=== PATIENT | female | born 1940 | race Caucasian/White ===

== ENCOUNTER 2017-01-21 05:10 | Day surgery (SDC) | payer MEDICARE, MEDICAID ==
[~2017-01-21 05:10] MED LIST: NAPROSYN500 MG PO; PREDNISONE2.5 MG PO; ROBAXIN500 MG PO; SYNTHROID175 MCG PO; ZOLOFT50 MG PO
[2017-01-21 05:49] LABS: BASOPHILS 0.1 % (0-2); EOSINOPHILS 1.1 % (0-7); HEMATOCRIT 36.4 % (36.0-48.0); HEMOGLOBIN 11.5 g/dL (12-16); IMMATURE GRANULOCYTES 0.4 % (0-5); MCH 28.9 pg (26.0-34.0); MCHC 31.6 g/dL (31.0-37.0); MCV 91.5 fL (80.0-100.0); MEAN PLATELET VOLUME 11.6 fL (7.4-10.4); MONOCYTES 6.1 % (2-11); NEUTROPHILS 74.3 % (40-80); RBC 3.98 10x6/uL (4.00-5.40); RDW 14.6 % (11.5-14.5); WBC 10.5 10x3/uL (4.8-10.8)
[2017-01-21 05:52] LABS: ANION GAP 16.3 mmol/L (8-16); APTT 50.1 SECONDS (22.8-39.4); CALCIUM 8.1 mg/dL (8.5-10.1); CARBON DIOXIDE 19.7 mmol/L (21.0-32.0); CREATININE - SERUM 1.5 mg/dL (0.6-1.3); INR 1.07 (0.85-1.17); PROTIME 13.7 SECONDS (11.6-15.0)
[2017-01-21 05:53] LABS: PLATELET COUNT 205 10x3/uL (130-400)
[2017-01-21] MEDS ORDERED: OMEPRAZOLE20 M1 PO (06:27)
[2017-01-21 06:28] VITALS: BP 128/60; BMI 33.9
[2017-01-21] MEDS ORDERED: HYDROCODONE-APA1 TAB PO (09:33)
--- NOTE | 2017-01-21 11:21 | NUR ---
REED REMOVED INTACT, APPROXIMATLY 60 CC YELLOW URINE OUT.
--- NOTE | 2017-02-04 11:14 | OP ---
PATIENT NAME: SHABANA GUERRA MEDICAL RECORD: [id number] :42 LOCATION:D.OPS ADMISSION DATE: SURGEON: DARINEL SUTTON MD DATE OF OPERATION: 01/21/2017 PREOPERATIVE DIAGNOSES: 1. Ventral incisional hernia. 2. Gastroesophageal reflux disease. 3. Hiatal hernia. 4. Arthritis. 5. History of chronic steroid use. 6. Morbid obesity. 7. History of parotid gland cancer. POSTOPERATIVE DIAGNOSES: 1. Ventral incisional hernia. 2. Gastroesophageal reflux disease. 3. Hiatal hernia. 4. Arthritis. 5. History of chronic steroid use. 6. Morbid obesity. 7. History of parotid gland cancer. PROCEDURE: Ventral hernia repair with 8 x [address] mesh. SURGEON: Darinel Sutton MD REPORT OF PROCEDURE: The patient's abdomen was prepped and draped in sterile fashion. The hernia defect was in the left upper quadrant. A subcostal incision was made overlying the hernia defect. Electrocautery was used to dissect through the subcutaneous tissues and we encountered the hernia sac. The sac was penetrated with electrocautery and we entered the abdominal cavity. There were no adhesions to the hernia sac. We then took down the hernia sac to the fascial edges. The fascial edges were actually very mobile, but they were thin and did not appear to be a very strong. The top and bottom surfaces of the fascia were freed up from any surrounding attachments. The patient had a lot of old mesh present in the upper midline. We measured out the defect, it was about 11 cm in length. It appeared that the defect would close most easily in a longitudinal fashion. The edges were cleared off until we had some good viable fascial tissue present. A 12 x [address] mesh was inserted in an underlay fashion and sutured down to the fascia using interrupted 0 Prolenes times 8. The mesh appeared to rest in good position. We then irrigated out the wound thoroughly with normal saline. The fascia was then closed longitudinally with #1 looped PDS times 2 At this point, we had good fascial closure overlying the mesh. We irrigated out the wound thoroughly with normal saline and assured there was no sign of any bleeding. At this point, the subcutaneous tissues were reapproximated with interrupted 3-0 Vicryl and the skin was closed with running subcutaneous 5-0 Monocryl. The patient had a small indentation in the midline overlying some firm tissue. I figured this was probably going to be a small suture granuloma. A skin incision was made overlying this. The skin incision was actually just to the right of midline in the upper abdomen. As we dissected through, we found there was not a suture granuloma, but there was a balled up piece of corner of a mesh that was present just under the skin. This piece of mesh was transected from surrounding tissue. The subcutaneous tissues were then irrigated out and reapproximated with 3-0 Vicryl and the skin was closed with OPERATIVE REPORT [id number] SHABANA GUERRA running subcutaneous 5-0 Monocryl. The wounds were all dressed appropriately. COMPLICATIONS: None. CONDITION: Stable. ANESTHESIA: General endotracheal. BLOOD LOSS: Minimal. TRANSINT:[id number] Voice Confirmation ID: [id number] DOCUMENT ID: [id number] DARINEL SUTTON MD at 1114 CC: DEJA MARTINEZ MD [id number] DICTATION DATE: 01/21/17939 WAIVER ANALYST: 01/21/17 1024 [facility] 01/21/17 [facility] [address] [place] [address]
== END 2017-01-21 13:10 | disposition home or self-care (01) ==
LOC: D.OPS 05:10 → D.PAN 07:30 → D.OPS 09:45
PROVIDERS: Anesthesiology; Surgery
DX: K43.2 Incisional hernia without obstruction or gangrene (principal); K21.9 Gastro-esophageal reflux disease without esophagitis; K44.9 Diaphragmatic hernia without obstruction or gangrene; M19.90 Unspecified osteoarthritis, unspecified site; Z79.52 Long term (current) use of systemic steroids; E66.01 Morbid (severe) obesity due to excess calories; Z85.89 Personal history of malignant neoplasm of other organs and systems; Z01.812 Encounter for preprocedural laboratory examination; Z68.33 Body mass index [BMI] 33.0-33.9, adult

== ENCOUNTER 2017-04-18 16:11 | Emergency (ER) | payer MEDICARE, MEDICAID ==
[~2017-04-18 16:11] MED LIST changes: +HYDROCODONE-APA1 TAB PO; +OMEPRAZOLE20 M1 PO
[2017-04-18 17:45] LABS: ALBUMIN 2.7 g/dL (3.4-5.0); ANION GAP 20.2 mmol/L (8-16); BILIRUBIN - TOTAL 0.68 mg/dL (0.2-1.3); CARBON DIOXIDE 18.2 mmol/L (21.0-32.0); CREATININE - SERUM 1.5 mg/dL (0.6-1.3); POTASSIUM - SERUM 3.4 mmol/L (3.5-5.1)
[2017-04-18 17:50] LABS: INR 1.29 (0.85-1.17); PROTIME 15.6 SECONDS (11.6-15.0)
[2017-04-18 17:51] LABS: D-DIMER-QUANTITATIVE 0.85 ug/mLFEU (0.20-0.54)
[2017-04-18 17:56] LABS: CALCIUM 6.4 mg/dL (8.5-10.1)
[2017-04-18 19:02] LABS: CKMB 0.5 U/L (0.0-3.6); CREATINE KINASE 115 UL (21-215)
[2017-04-18 19:29] LABS: BASOPHILS 0.1 % (0-2); EOSINOPHILS 0.4 % (0-7); HEMATOCRIT 35.4 % (36.0-48.0); HEMOGLOBIN 11.6 g/dL (12-16); IMMATURE GRANULOCYTES 0.1 % (0-5); LYMPHOCYTES 15.2 % (15-50); MCH 27.8 pg (26.0-34.0); MCHC 32.8 g/dL (31.0-37.0); MCV 84.9 fL (80.0-100.0); MONOCYTES 7.9 % (2-11); NEUTROPHILS 76.3 % (40-80); RBC 4.17 10x6/uL (4.00-5.40); RDW 14.9 % (11.5-14.5); WBC 6.7 10x3/uL (4.8-10.8)
[2017-04-18 19:31] LABS: PLATELET COUNT 103 10x3/uL (130-400)
== END 2017-04-18 19:57 | disposition home or self-care (01) ==
LOC: D.ER 16:11
PROVIDERS: Emergency Medicine; Physician Assistant Medical
DX: I31.3 Pericardial effusion (noninflammatory) (principal); R06.00 Dyspnea, unspecified; I10 Essential (primary) hypertension; M32.9 Systemic lupus erythematosus, unspecified

== ENCOUNTER → 2017-06-03 16:58 | Outpatient (CLI) | payer MEDICARE, MEDICAID ==
[~2017-06-03 16:58] MED LIST changes: +OS-CAL500 MG PO; +PROTONIX40 MG PO; +VITAMIN D31000 UNI2 PO
== END | disposition home or self-care (01) ==
LOC: D.MAMMO 04-02 15:45
DX: Z12.31 Encounter for screening mammogram for malignant neoplasm of breast (principal)

== ENCOUNTER → 2017-06-13 15:15 | Outpatient (CLI) | payer MEDICARE, MEDICAID | END | disposition home or self-care (01) | LOC: D.MRI 06-12 14:00 | DX: M54.2 Cervicalgia (principal) ==

== ENCOUNTER 2017-07-08 12:13 | Inpatient (IN) | payer MEDICARE, MEDICAID ==
[~2017-07-08] VITALS: Ht 160 cm; Wt 68.0 kg
[~2017-07-08 12:13] MED LIST changes: -OS-CAL500 MG PO; -PROTONIX40 MG PO; -VITAMIN D31000 UNI2 PO
[2017-07-08 12:53] LABS: BASOPHILS 0.1 % (0-2); EOSINOPHILS 0.4 % (0-7); HEMATOCRIT 30.5 % (36.0-48.0); HEMOGLOBIN 10.2 g/dL (12-16); IMMATURE GRANULOCYTES 0.4 % (0-5); LYMPHOCYTES 11.5 % (15-50); MCH 28.7 pg (26.0-34.0); MCHC 33.4 g/dL (31.0-37.0); MCV 85.9 fL (80.0-100.0); MEAN PLATELET VOLUME 11.2 fL (7.4-10.4); MONOCYTES 4.2 % (2-11); NEUTROPHILS 83.4 % (40-80); RBC 3.55 10x6/uL (4.00-5.40); RDW 16.8 % (11.5-14.5); WBC 8.3 10x3/uL (4.8-10.8)
[2017-07-08 13:03] LABS: APPEARANCE CLEAR (CLEAR); BILIRUBIN NEGATIVE (NEGATIVE); COLOR YELLOW (YELLOW); GLUCOSE NEGATIVE (NEGATIVE); KETONE NEGATIVE (NEGATIVE); NITRITE NEGATIVE (NEGATIVE); PROTEIN NEGATIVE (NEGATIVE); UROBILINOGEN NORMAL (NORMAL)
[2017-07-08 13:03] LABS: PLATELET COUNT 128 10x3/uL (130-400)
[2017-07-08 13:04] LABS: ALBUMIN 2.3 g/dL (3.4-5.0); ANION GAP 18.5 mmol/L (8-16); BILIRUBIN - TOTAL 0.73 mg/dL (0.2-1.3); CARBON DIOXIDE 16.7 mmol/L (21.0-32.0); CREATININE - SERUM 1.4 mg/dL (0.6-1.3); POTASSIUM - SERUM 3.2 mmol/L (3.5-5.1); PROTEIN - SERUM 6.2 g/dL (6.4-8.2)
[2017-07-08 20:23] VITALS: BP 142/77
[2017-07-08 23:43] VITALS: BP 101/68
[2017-07-09 04:25] VITALS: BP 151/80
[2017-07-09 06:27] VITALS: BP 138/80; BMI 26.6
[2017-07-09 08:39] VITALS: BP 164/87
[2017-07-09 12:45] VITALS: BP 152/88
[2017-07-09 14:14] VITALS: BMI 26.5
[2017-07-09 14:48] LABS: T4 THYROXIN - FREE 1.21 ng/dL (0.76-1.46); THYROID STIMULATING HORMONE 4.15 uIU/mL (0.36-3.74)
[2017-07-09 17:11] VITALS: BP 141/67
[2017-07-09 20:00] VITALS: BP 131/98
[2017-07-09 21:36] VITALS: Ht 160 cm; Wt 68.0 kg
[2017-07-10] VITALS: BP 142/76
[2017-07-10 04:00] VITALS: BP 130/75
[2017-07-10 05:16] LABS: BASOPHILS 0.1 % (0-2); EOSINOPHILS 0.6 % (0-7); HEMATOCRIT 27.8 % (36.0-48.0); HEMOGLOBIN 9.3 g/dL (12-16); IMMATURE GRANULOCYTES 0.3 % (0-5); LYMPHOCYTES 13.2 % (15-50); MCH 28.7 pg (26.0-34.0); MCHC 33.5 g/dL (31.0-37.0); MCV 85.8 fL (80.0-100.0); MONOCYTES 4.3 % (2-11); NEUTROPHILS 81.5 % (40-80); PLATELET COUNT 106 10x3/uL (130-400); RBC 3.24 10x6/uL (4.00-5.40); RDW 17.2 % (11.5-14.5); WBC 7.1 10x3/uL (4.8-10.8)
[2017-07-10 05:36] LABS: ANION GAP 20.4 mmol/L (8-16); BILIRUBIN - TOTAL 0.65 mg/dL (0.2-1.3); CARBON DIOXIDE 15.2 mmol/L (21.0-32.0); CREATININE - SERUM 1.2 mg/dL (0.6-1.3); PHOSPHOROUS 2.9 mg/dL (2.5-4.9); POTASSIUM - SERUM 3.6 mmol/L (3.5-5.1); PROTEIN - SERUM 5.4 g/dL (6.4-8.2)
[2017-07-10 05:50] LABS: CALCIUM 4.9 mg/dL (8.5-10.1); MAGNESIUM - SERUM 1.6 mg/dL (1.8-2.4)
[2017-07-10 09:11] VITALS: BP 161/77
[2017-07-10 13:21] VITALS: BP 151/85
[2017-07-10 20:00] VITALS: BP 136/57
[2017-07-11 00:49] VITALS: BP 119/71
[2017-07-11 04:49] VITALS: BP 161/73
[2017-07-11 06:43] LABS: ANION GAP 14.8 mmol/L (8-16); CARBON DIOXIDE 14.8 mmol/L (21.0-32.0); CREATININE - SERUM 1.2 mg/dL (0.6-1.3); MAGNESIUM - SERUM 1.9 mg/dL (1.8-2.4); PHOSPHOROUS 2.8 mg/dL (2.5-4.9); POTASSIUM - SERUM 3.6 mmol/L (3.5-5.1); PRE-ALBUMIN 16.3 mg/dL (18.0-35.7)
[2017-07-11 06:50] LABS: BASOPHILS 0.2 % (0-2); EOSINOPHILS 0.7 % (0-7); HEMOGLOBIN 9.2 g/dL (12-16); IMMATURE GRANULOCYTES 0.1 % (0-5); MCHC 31.7 g/dL (31.0-37.0); MCV 91.5 fL (80.0-100.0); PLATELET COUNT 99 10x3/uL (130-400); RBC 3.17 10x6/uL (4.00-5.40); WBC 9.1 10x3/uL (4.8-10.8)
[2017-07-11 07:24] LABS: CALCIUM 5.1 mg/dL (8.5-10.1)
[2017-07-11 07:57] LABS: PLATELET ESTIMATE DECREASED
[2017-07-11 10:22] LABS: VITAMIN D 25 HYDROXY 22.8 ng/mL (30.0-100.0)
[2017-07-11 12:10] VITALS: BP 144/59
[2017-07-11 15:54] VITALS: BP 144/75
[2017-07-11 20:00] VITALS: BP 121/64
[2017-07-12] VITALS: BP 140/65
[2017-07-12 04:00] VITALS: BP 152/83
[2017-07-12 06:20] LABS: BASOPHILS 0.1 % (0-2); EOSINOPHILS 0.7 % (0-7); HEMATOCRIT 32.1 % (36.0-48.0); HEMOGLOBIN 10.7 g/dL (12-16); IMMATURE GRANULOCYTES 0.3 % (0-5); LYMPHOCYTES 10.2 % (15-50); MCH 29.2 pg (26.0-34.0); MCHC 33.3 g/dL (31.0-37.0); MEAN PLATELET VOLUME 11.7 fL (7.4-10.4); MONOCYTES 3.2 % (2-11); NEUTROPHILS 85.5 % (40-80); PLATELET COUNT 111 10x3/uL (130-400); RBC 3.67 10x6/uL (4.00-5.40); RDW 17.5 % (11.5-14.5); WBC 9.1 10x3/uL (4.8-10.8)
[2017-07-12 06:21] LABS: MCV 87.5 fL (80.0-100.0)
[2017-07-12 06:34] LABS: ANION GAP 19.1 mmol/L (8-16); CARBON DIOXIDE 16.4 mmol/L (21.0-32.0); CREATININE - SERUM 1.1 mg/dL (0.6-1.3); MAGNESIUM - SERUM 2.1 mg/dL (1.8-2.4); PHOSPHOROUS 2.1 mg/dL (2.5-4.9); POTASSIUM - SERUM 3.5 mmol/L (3.5-5.1)
[2017-07-12 06:56] LABS: CALCIUM 5.3 mg/dL (8.5-10.1)
[2017-07-12 07:18] LABS: ALBUMIN 2.5 g/dL (3.4-5.0)
[2017-07-12 07:44] VITALS: BP 136/76
[2017-07-12 11:34] VITALS: BP 141/73
[2017-07-12 16:20] VITALS: BP 134/68
[2017-07-12 21:53] VITALS: BP 91/56
[2017-07-13 02:51] VITALS: BP 142/74
[2017-07-13 06:56] LABS: BASOPHILS 0.2 % (0-2); EOSINOPHILS 1.2 % (0-7); HEMATOCRIT 28.8 % (36.0-48.0); HEMOGLOBIN 9.4 g/dL (12-16); IMMATURE GRANULOCYTES 0.2 % (0-5); LYMPHOCYTES 9.6 % (15-50); MCH 28.6 pg (26.0-34.0); MCHC 32.6 g/dL (31.0-37.0); MCV 87.5 fL (80.0-100.0); MEAN PLATELET VOLUME 12.2 fL (7.4-10.4); MONOCYTES 5.5 % (2-11); NEUTROPHILS 83.3 % (40-80); PLATELET COUNT 102 10x3/uL (130-400); RBC 3.29 10x6/uL (4.00-5.40); RDW 17.6 % (11.5-14.5)
[2017-07-13 07:02] LABS: WBC 5.9 10x3/uL (4.8-10.8)
[2017-07-13 07:28] LABS: CARBON DIOXIDE 18.4 mmol/L (21.0-32.0); CREATININE - SERUM 1.1 mg/dL (0.6-1.3); MAGNESIUM - SERUM 2.1 mg/dL (1.8-2.4); PHOSPHOROUS 2.6 mg/dL (2.5-4.9)
[2017-07-13 07:39] LABS: ANION GAP 18.7 mmol/L (8-16); POTASSIUM - SERUM 4.1 mmol/L (3.5-5.1)
[2017-07-13 07:40] LABS: CALCIUM 5.1 mg/dL (8.5-10.1)
[2017-07-13 08:37] VITALS: BP 131/63
[2017-07-13 12:00] VITALS: BP 138/71
[2017-07-13 15:37] VITALS: BP 152/76
[2017-07-13 21:02] VITALS: BP 153/84
[2017-07-14 01:39] VITALS: BP 114/39
[2017-07-14 07:03] LABS: BASOPHILS 0.2 % (0-2); EOSINOPHILS 0.8 % (0-7); HEMATOCRIT 29.1 % (36.0-48.0); HEMOGLOBIN 9.5 g/dL (12-16); IMMATURE GRANULOCYTES 0.2 % (0-5); LYMPHOCYTES 11.5 % (15-50); MCH 28.9 pg (26.0-34.0); MCHC 32.6 g/dL (31.0-37.0); MCV 88.4 fL (80.0-100.0); MEAN PLATELET VOLUME 11.7 fL (7.4-10.4); MONOCYTES 6.4 % (2-11); NEUTROPHILS 80.9 % (40-80); PLATELET COUNT 101 10x3/uL (130-400); RBC 3.29 10x6/uL (4.00-5.40); WBC 5.9 10x3/uL (4.8-10.8)
[2017-07-14 07:34] LABS: ANION GAP 18.5 mmol/L (8-16); CARBON DIOXIDE 17.3 mmol/L (21.0-32.0); CREATININE - SERUM 1.2 mg/dL (0.6-1.3); MAGNESIUM - SERUM 2.1 mg/dL (1.8-2.4); PHOSPHOROUS 2.1 mg/dL (2.5-4.9); POTASSIUM - SERUM 3.8 mmol/L (3.5-5.1)
[2017-07-14 07:52] LABS: CALCIUM 5.2 mg/dL (8.5-10.1)
[2017-07-14 16:05] VITALS: BP 136/88
[2017-07-14 20:00] VITALS: BP 137/75
[2017-07-15] VITALS: BP 127/63
[2017-07-15 04:00] VITALS: BP 121/70
[2017-07-15 05:28] LABS: BASOPHILS 0.2 % (0-2); EOSINOPHILS 0.9 % (0-7); HEMATOCRIT 25.2 % (36.0-48.0); HEMOGLOBIN 8.3 g/dL (12-16); IMMATURE GRANULOCYTES 0.2 % (0-5); MCH 29.2 pg (26.0-34.0); MCHC 32.9 g/dL (31.0-37.0); MCV 88.7 fL (80.0-100.0); NEUTROPHILS 82.7 % (40-80); PLATELET COUNT 91 10x3/uL (130-400); RBC 2.84 10x6/uL (4.00-5.40); RDW 17.9 % (11.5-14.5); WBC 5.8 10x3/uL (4.8-10.8)
[2017-07-15 05:49] LABS: ANION GAP 15.3 mmol/L (8-16); CARBON DIOXIDE 19.4 mmol/L (21.0-32.0); PHOSPHOROUS 2.1 mg/dL (2.5-4.9); POTASSIUM - SERUM 3.7 mmol/L (3.5-5.1)
[2017-07-15 06:30] LABS: CALCIUM 4.9 mg/dL (8.5-10.1)
[2017-07-15 06:41] LABS: PLATELET ESTIMATE DECREASED
[2017-07-15 10:27] VITALS: BP 137/80
[2017-07-15 18:18] VITALS: BP 149/75
[2017-07-15 20:00] VITALS: BP 130/64
[2017-07-16 04:00] VITALS: BP 138/76
[2017-07-16 06:59] LABS: BASOPHILS 0.2 % (0-2); EOSINOPHILS 0.8 % (0-7); IMMATURE GRANULOCYTES 0.2 % (0-5); LYMPHOCYTES 11.3 % (15-50); MCHC 32.6 g/dL (31.0-37.0); MONOCYTES 8.9 % (2-11); NEUTROPHILS 78.6 % (40-80); RDW 19.3 % (11.5-14.5); WBC 6.1 10x3/uL (4.8-10.8)
[2017-07-16 07:00] LABS: HEMATOCRIT 32.5 % (36.0-48.0); HEMOGLOBIN 10.6 g/dL (12-16); MCV 85.8 fL (80.0-100.0); PLATELET COUNT 57 10x3/uL (130-400); RBC 3.79 10x6/uL (4.00-5.40)
[2017-07-16 07:19] LABS: ALBUMIN 2.1 g/dL (3.4-5.0); ANION GAP 17.4 mmol/L (8-16); BILIRUBIN - TOTAL 0.47 mg/dL (0.2-1.3); CARBON DIOXIDE 17.6 mmol/L (21.0-32.0); PROTEIN - SERUM 5.1 g/dL (6.4-8.2)
[2017-07-16 07:36] LABS: CALCIUM 4.9 mg/dL (8.5-10.1)
[2017-07-16 08:46] VITALS: BP 139/75
[2017-07-16 13:10] VITALS: BP 145/87
[2017-07-16] MEDS ORDERED: VITAMIN D31000 UNI2 PO (13:46)
[2017-07-16] MEDS ORDERED: PROTONIX40 MG PO (13:46)
[2017-07-16] MEDS ORDERED: OS-CAL500 MG PO (13:46)
== END 2017-07-16 15:50 | disposition home or self-care (01) | DRG 391 ==
LOC: D.ER 12:13 → D.MS 15:44 → D.EDHOLD 15:44 → D.MS 16:30
PROVIDERS: Emergency Medicine; Family Medicine; Internal Medicine Gastroenterology; Internal Medicine Nephrology
PROC: 05HC33Z Insertion of Infusion Device into Left Basilic Vein, Percutaneous Approach (ICD-10-PCS; 2017-07-14)
PROC: B54NZZA Ultrasonography of Left Upper Extremity Veins, Guidance (ICD-10-PCS; 2017-07-14)
PROC: 0DBN8ZX Excision of Sigmoid Colon, Via Natural or Artificial Opening Endoscopic, Diagnostic (ICD-10-PCS; principal; 2017-07-14 08:25)
DX: K52.9 Noninfective gastroenteritis and colitis, unspecified (principal); G93.41 Metabolic encephalopathy; E43 Unspecified severe protein-calorie malnutrition; K91.2 Postsurgical malabsorption, not elsewhere classified; E83.42 Hypomagnesemia; E83.51 Hypocalcemia; I95.9 Hypotension, unspecified; E87.6 Hypokalemia; E16.2 Hypoglycemia, unspecified; Z98.84 Bariatric surgery status; F32.9 Major depressive disorder, single episode, unspecified; E03.9 Hypothyroidism, unspecified; I12.9 Hypertensive chronic kidney disease with stage 1 through stage 4 chronic kidney disease, or unspecified chronic kidney disease; N18.3 Chronic kidney disease, stage 3 (moderate); K91.1 Postgastric surgery syndromes; Y83.8 Other surgical procedures as the cause of abnormal reaction of the patient, or of later complication, without mention of misadventure at the time of the procedure; K57.30 Diverticulosis of large intestine without perforation or abscess without bleeding; K64.8 Other hemorrhoids

== ENCOUNTER → 2017-12-18 14:43 | Outpatient (CLI) | payer MEDICARE ==
[2017-07-09 21:36] VITALS: BMI 26.5
[~2017-12-18 14:43] MED LIST changes: +OS-CAL500 MG PO; +PROTONIX40 MG PO; +VITAMIN D31000 UNI2 PO
== END | disposition home or self-care (01) ==
LOC: D.US 14:43
DX: N18.3 Chronic kidney disease, stage 3 (moderate) (principal); R19.7 Diarrhea, unspecified; Z68.28 Body mass index [BMI] 28.0-28.9, adult

== ENCOUNTER 2018-01-13 13:18 | Day surgery (SDC) | payer MEDICARE ==
[~2018-01-13] VITALS: Ht 157.5 cm; Wt 70.9 kg
--- NOTE | ~2018-01-13 | OP ---
PATIENT NAME: SHABANA DESOUZA MEDICAL RECORD: [id number] :42 LOCATION:JACOB ADMISSION DATE: SURGEON: EVA MANTILLA MD DATE OF OPERATION: 01/13/2018 PROCEDURE: Colonoscopy with biopsy, polyp ablation, and polypectomy. REFERRING PHYSICIAN: Gopi Espinoza MD INDICATIONS: Ms. Desouza is a delightful 77-year-old woman with history of arthritis and lupus, who had been admitted to the hospital in June 2017 with symptoms of chronic diarrhea. Flexible sigmoidoscopy biopsies were remarkable for collagenous colitis and she was subsequently treated with a tapering dose of Entocort EC over 2-month period. Her diarrhea has basically cleared and she is using Questran p.r.n. She has a history of colon polyps with her last complete colonoscopy being with Dr. Salinas on 11/05/2007 with findings of 4 tubulovillous adenomas and grade I internal hemorrhoids. She presents for outpatient colonoscopy. PREMEDICATIONS: Total IV anesthesia, propofol 300 mg, ASA 3. INSTRUMENT: Olympus video colonoscope, pediatric. PROCEDURE AND FINDINGS: After receiving informed consent, Ms. Desouza was placed in left lateral decubitus position and sedated as per anesthesia. After achieving an adequate level of sedation, digital rectal exam was performed that showed no external hemorrhoids, fissures, or fistulas. Normal sphincter tone. No palpable rectal masses. The colonoscope was introduced per rectally and advanced with some difficulty to the cecum. She had a large ventral hernia with looping of the colon and scope in the ventral hernia. The cecum, IC valve, and appendiceal orifice were identified. The periappendiceal orifice mucosa had slight spiculated appearance and was biopsied. At the edge of the IC valve and distal cecum, was a 1-cm sessile polyp, removed with hot biopsy forcep technique. Postpolypectomy, there was mild oozing at the postpolypectomy site and a Hemoclip was applied with good hemostasis. In the proximal ascending colon, was a 0.25- to 0.3-cm sessile polyp that was ablated with the hot biopsy forceps. Biopsies were taken from the ascending colon to rule out collagenous colitis. At the hepatic flexure, was a 0.5-cm sessile polyp removed with biopsy forcep technique. In the mid transverse colon, was a 2-cm nonobstructive-like submucosal lesion with appearance of a lipoma, status post biopsy. In the transverse colon; also was a 0.3- to 0.5-cm sessile polyp, removed with biopsy forcep technique. Few diverticula were seen scattered in the sigmoid colon. Retroflexion in the rectum showed no significant internal hemorrhoids. A qioy-sy-losv prep was present. Ms. Desouza tolerated the procedure well. No immediate complications. Withdrawal time was 15 minutes. ASSESSMENT: 1. Abnormal tissue surrounding the appendiceal orifice, status post biopsy. 2. A 1-cm polyp at the edge of the IC valve/cecum, status post polypectomy with Hemoclip application for hemostasis. 3. Proximal ascending colon polyp, status post ablation. 4. Hepatic flexure polyp, status post polypectomy. 5. Transverse colon polyp, status post polypectomy. 6. Transverse colonic lipoma, status post biopsy. 7. Mild sigmoid diverticulosis coli. OPERATIVE REPORT [id number] SHABANA DESOUZA RECOMMENDATIONS: 1. Followup histopathology. 2. Avoid aspirin, nonsteroidal anti-inflammatory drugs, and VILLALOBOS-2 inhibitors for 14 days postpolypectomy. 3. High-fiber diet. 4. Recommend surveillance colonoscopy in 3 years pending nature of polyp histopathology. TRANSINT:[id number] Voice Confirmation ID: [id number] DOCUMENT ID: [id number] EVA MANTILLA MD at 1254 CC: GOPI ESPINOZA MD [id number] DICTATION DATE: 01/13/181723 FLATWORK FOLDER: 01/13/18 1837 [facility] 01/13/18 [place] [id number] [place] [address]
[2018-01-13 13:52] LABS: BASOPHILS 0.2 % (0-2); EOSINOPHILS 1.7 % (0-7); HEMATOCRIT 33.1 % (36.0-48.0); IMMATURE GRANULOCYTES 0.4 % (0-5); LYMPHOCYTES 20.8 % (15-50); MCH 29.9 pg (26.0-34.0); MCHC 33.2 g/dL (31.0-37.0); MCV 89.9 fL (80.0-100.0); MEAN PLATELET VOLUME 10.6 fL (7.4-10.4); MONOCYTES 4.8 % (2-11); NEUTROPHILS 72.1 % (40-80); RBC 3.68 10x6/uL (4.00-5.40); RDW 13.5 % (11.5-14.5); WBC 5.4 10x3/uL (4.8-10.8)
[2018-01-13 13:53] LABS: PLATELET COUNT 115 10x3/uL (130-400)
[2018-01-13 14:07] LABS: ALBUMIN 3.6 g/dL (3.4-5.0); ANION GAP 16.4 mmol/L (8-16); BILIRUBIN - TOTAL 0.59 mg/dL (0.2-1.3); CALCIUM 9.7 mg/dL (8.5-10.1); CARBON DIOXIDE 21.2 mmol/L (21.0-32.0); CREATININE - SERUM 1.2 mg/dL (0.6-1.3); POTASSIUM - SERUM 3.6 mmol/L (3.5-5.1); PROTEIN - SERUM 7.4 g/dL (6.4-8.2)
[2018-01-13 14:10] LABS: INR 1.16 (0.85-1.17); PROTIME 14.4 SECONDS (11.6-15.0)
[2018-01-13 14:11] LABS: APTT 39.8 SECONDS (22.8-39.4)
[2018-01-13 14:13] LABS: APPEARANCE HAZY (CLEAR); COLOR YELLOW (YELLOW); SPECIFIC GRAVITY 1.015 (1.005-1.020)
[2018-01-13 14:14] LABS: BACTERIA MODERATE /hpf (NONE SEEN); BILIRUBIN NEGATIVE (NEGATIVE); EPITHELIAL CELLS 0-5 /hpf (0-5); GLUCOSE NEGATIVE (NEGATIVE); KETONE NEGATIVE (NEGATIVE); NITRITE NEGATIVE (NEGATIVE); PROTEIN NEGATIVE (NEGATIVE); UROBILINOGEN NORMAL (NORMAL)
[2018-01-13] MEDS ORDERED: VITAMIN D250000 UNIT PO (15:22)
[2018-01-13] MEDS ORDERED: ZYRTEC10 MG PO (15:23)
[2018-01-13 15:24] VITALS: BP 132/64; Ht 157.5 cm; Wt 70.9 kg
== END 2018-01-13 18:15 | disposition home or self-care (01) ==
LOC: D.OPS 13:18
PROVIDERS: Internal Medicine Gastroenterology
DX: K63.5 Polyp of colon (principal); R19.7 Diarrhea, unspecified

== ENCOUNTER 2018-02-03 08:11 | Outpatient (CLI) | payer MEDICARE ==
[~2018-02-03] VITALS: Ht 157.5 cm; Wt 70.0 kg
--- NOTE | ~2018-02-03 | OP ---
PATIENT NAME: SHABANA GUERRA MEDICAL RECORD: [id number] :42 LOCATION:D.CAT ADMISSION DATE: SURGEON: TOMMY WILSON MD DATE OF OPERATION: 02/03/2018 PROCEDURES: 1. Left heart catheterization. 2. Selective coronary angiography. 3. Left ventriculogram. INDICATION: Chest pain compatible with angina. PROCEDURE IN DETAIL: After informed consent was obtained and after a detailed description of the risks, benefits as well as alternative therapies, the patient elected to proceed with angiogram and heart catheterization. The right radial area was prepped and draped in normal sterile fashion. Right radial artery was cannulated via modified Seldinger technique with placement of 5-Spanish sheath. All catheters exchanged through this sheath. FINDINGS: Left ventriculogram was performed in standard 30-degree MARRUFO view, reveals good cardiac wall motion throughout all segments. Overall ejection fraction estimated 60%. SELECTIVE CORONARY ANGIOGRAPHY: Left main, left anterior descending, left circumflex, right coronary artery are all smooth-walled vessels with no angiographic evidence of coronary artery disease. OVERALL IMPRESSION: 1. No angiographic evidence of coronary artery disease. 2. Normal left heart pressures. 3. Normal left ventricular systolic function. Chest pain is noncardiac in etiology. No further cardiac workup needs to be ascertained. TRANSINT:[id number] Voice Confirmation ID: [id number] DOCUMENT ID: [id number] TOMMY WILSON MD at 1059 CC: [id number] DICTATION DATE: 02/03/18 1020 BELT LOOP MAKER: 02/03/18 1111 [facility] 02/03/18 [place] [id number] [place] [id number]
--- NOTE | ~2018-02-03 | HEMODYNAMI ---
PATIENT:SHABANA GUERRA MEDICAL RECORD: [id number] : 42 LOCATION:DHONEY ADMISSION DATE: 02/03/18 Generatedon:02/03/201810:18 Patient name: SHABANA GUERRA Patient #: [id number] SSN: DO B: 1940 Date of study: 02/03/2018 Page: Of Hemodynamic Procedure Report Patient Data Patient Demographics Procedure consent was obtained First Name: SHABANA Gender: Female Last Name: CHARLIE : 1940 Patient #: [id number] Age: 77 year(s) Race: Unknown Additional ID: [id number] Contact details [address]: [address] [place] [address] State: [place] City: [place] Zip code: [address] Admission Admission Data Admission Date: 02/03/2018 Admission Time: 8:11 Procedure Procedure Types Cath Procedure Diagnostic Procedure LHC LH w/Coronaries Sedation Charges Moderate Sedation up to 15 minutes Procedure Description Procedure Date Procedure Date: 02/03/2018 Procedure Start Time: 10:08 Procedure End Time: 10:17 Procedure Staff Name Function Jorge Castellanos MD Performing Physician Marichuy Torres RT Monitor Ciro Rocha RT Scrub Keivn Milton RN Nurse Procedure Data Cath Procedure Fluoroscopy Diagnostic fluoroscopy Total fluoroscopy Time: 1.9 time: 1.9 min min Diagnostic fluoroscopy Total fluoroscopy dose: 47 dose: 47 mGy mGy Contrast Material Contrast Material Type Amount (ml) Isovue 300 50 Entry Location Entry Primary Successful Side Size Upsize Upsize Entry Closure Palacio ccessful Closure Location (Fr) 1 (Fr) 2 (Fr) Remarks Device Remarks Radial Right 6 Fr Mechanical artery Short Compression Estimated blood loss: 5 ml Procedure Complications No complications Procedure Medications Medication Administration Route Dosage 0.9% NaCl I.V. 100 ml/hr Oxygen etCO2 Nasal cannula 2 l/min Heparin Flush Bag added to field 2 bags (1000units/500ml NS) Bupivacaine 0.5% added to field 10 ml Radial Cocktail added to field 1 syringe (Verapomil 2mg/Nitro 400mcg/Heparin 1500units) Versed I.V. 2 mg Fentanyl I.V. 100 mcg Versed I.V. 1 mg Fentanyl I.V. 100 mcg Radial Cocktail I.A. 1 syringe (Verapomil 2mg/Nitro 400mcg/Heparin 1500units) Hemodynamics Rest Heart Rate: 93 (bpm) Pressure Samples Time Site Value (mmHg) Purpose Heart Use Rate(bpm) 10:12 LV 132/6,22 Snapshot 110 Snapshots Pre Cath Intra NCS Post Cath Vital Signs Time Heart Resp SPO2 etCO2 NIBP (mmHg) Rhythm Pain Sedation Rate (ipm) (%) (mmHg) Status Level (bpm) 9:40:32 88 13 100 15.7 157/94(116) NSR 0 (11) 10(A) , No pain 9:44:46 91 15 100 28.5 166/92(117) NSR 0 (11) 10(A) , No pain 9:49:06 87 19 99 35.2 147/81(110) NSR 0 (11) 10(A) , No pain 9:53:26 81 14 99 32.2 124/64(89) NSR 0 (11) 10(A) , No pain 9:58:27 95 19 100 19.5 153/78(108) NSR 0 (11) 10(A) , No pain 10:02:49 88 14 98 25.5 132/64(92) NSR 0 (11) 10(A) , No pain 10:06:57 89 18 97 33.8 125/81(97) NSR 0 (11) 10(A) , No pain 10:11:07 98 15 100 21.7 131/72(99) NSR 0 (11) 9(A) , No pain 10:15:17 94 11 88 18 117/76(99) NSR 0 (11) 10(A) , No pain Medications Time Medication Route Dose Verified Delivered Reason Notes Effectiveness by by 9:37:59 0.9% NaCl I.V. 100 Kevin Kevin Per ml/hr Yoan Milton physician RN RN 9:38:08 Oxygen etCO2 2 l/min Kevin Kevin Per Nasal Yoan Milton physician cannula RN RN 9:38:18 Heparin Flush added 2 bags Kevin Kevin used for Bag to Yoan Milton procedure (1000units/500ml field RN RN NS) 9:39:15 Bupivacaine 0.5% added 10 ml Kevin Kevin for local to Yoan Milton anesthetic field RN RN 9:51:03 Radial Cocktail added 1 Kevin Kevin used for (Verapomil to syringe Yoan Milton procedure 2mg/Nitro field RN RN 400mcg/Heparin 1500units) 10:04:16 Versed I.V. 2 mg Kvein Kevin for sedation Yoan Milton RN RN 10:04:25 Fentanyl I.V. 100 mcg Kevin Kevin for sedation Yoan Milton RN RN 10:09:49 Versed I.V. 1 mg Kevin Kevin for sedation Yoan Milton RN RN 10:09:55 Fentanyl I.V. 100 mcg Kevin Kevin for sedation Yoan Milton RN RN 10:10:45 Radial Cocktail I.A. 1 Kevin Jorge for (Verapomil syringe Yoan Castellanos MD vasodilation 2mg/Nitro RN 400mcg/Heparin 1500units) Procedure Log Time Note 9:29:21 Kevin Milton RN sent for patient. Start room use. 9:29:22 Time tracking: Regular hours (M-F 7:00 - 5:00) 9:29:27 Plan of Care:Hemodynamics will remain stable., Cardiac rhythm will remain stable., Comfort level will be maintained., Respiratory function will remain adequate., Patient/ family verbilizes understanding of procedure., Procedure tolerated without complication., Recovers from procedure without complications.. 9:29:32 Patient received from Pre/Post Procedure Room to [facility] 2 Alert and oriented. Tansferred to table in Supine position. 9:29:33 Warm blankets applied, and traci hugger turned on for patient comfort. 9:29:34 Correct patient and procedure confirmed by team. 9:29:35 Signed procedure consent form obtained from patient. 9:29:36 ECG and BP/O2 sat monitors applied to patient. 9:37:59 0.9% NaCl 100 ml/hr I.V. was administered by Kevin Milton RN; Per physician; 9:38:08 Oxygen 2 l/min etCO2 Nasal cannula was administered by Kevin Milton RN; Per physician; 9:38:18 Heparin Flush Bag (1000units/500ml NS) 2 bags added to field was administered by Kevin Milton RN; used for procedure; 9:39:15 Bupivacaine 0.5% 10 ml added to field was administered by Kevin Milton RN; for local anesthetic; 9:39:22 Vital chart was started 9:42:05 Baseline sample Acquired. 9:42:12 Rhythm: sinus rhythm 9:42:13 Full Disclosure recording started 9:42:17 H&P Date Dictated: 02/03/2018 Within 30 days and on chart., H&P Addendum completed by physician on day of procedure. (MUST COMPLETE FOR ALL OUTPATIENTS). 9:42:18 Pre-procedure instructions explained to patient. 9:42:19 Pre-op teaching completed and patient verbalized understanding. 9:42:20 Family in waiting room. 9:42:22 Patient NPO since Midnight. 9:42:27 Is the patient allergic to Iodine/contrast media? No. 9:42:28 Was the patient premedicated? No 9:42:29 Is patient on blood thinner?No 9:42:37 Patient diabetic? No. 9:42:39 Previous problem with sedation/anesthesia? No ? 9:42:41 Snore? Yes 9:42:42 Sleep apnea? No 9:42:44 Deviated septum? No 9:42:45 Opens mouth fully? Yes 9:42:46 Sticks out tongue? Yes 9:42:48 Airway obstruction? No ? 9:42:50 Dentures? No ? 9:42:54 Pre procedure: right dorsailis pedis pulse Doppler 9:42:56 Pre procedure: left dorsailis pedis pulse Doppler 9:42:58 Patient pain scale 0/10 ?. 9:43:21 Lab results completed and on chart. 9:43:26 Right Radial & Right Groin area was prepped with chlora-prep and draped in sterile fashion 9:43:27 Alarms reviewed by R. N. 9:43:27 Sharps counted by scrub and verified by R.N. 9:51:03 Radial Cocktail (Verapomil 2mg/Nitro 400mcg/Heparin 1500units) 1 syringe added to field was administered by Kevin Milton RN; used for procedure; 10:03:14 Physician arrived 10:03:14 --------ALL STOP TIME OUT------ 10:03:15 Final Timeout: patient, procedure, and site verified with staff and physician. All members of the team are in agreement. 10:03:22 Right Radial & Right Groin site verified by team. 10:03:25 Physical assessment completed. ASA score P 2 - A patient with mild systemic disease as per Jorge Castellanos MD. 10:03:30 Sedation plan: IV Moderate Sedation Medication:Versed, Fentanyl 10:03:45 Zero performed for pressure channel P1 10:04:16 Versed 2 mg I.V. was administered by Kevin Milton RN; for sedation; 10:04:17 Use device set Radial Dx or PCI 10:04:18 ACIST Syringe (67245) opened to sterile field. 10:04:19 Medline Cath Pack ([id number]) opened to sterile field. 10:04:20 Bag Decanter (2002S) opened to sterile field. 10:04:20 DIAGNOSTIC WIRE .035 260cm J wire (281022) opened to sterile field. 10:04:21 ACIST Hand Control (15520) opened to sterile field. 10:04:21 ACIST Manifold (09530) opened to sterile field. 10:04:22 Tegaderm 4 x 4 (1626W) opened to sterile field. 10:04:25 Fentanyl 100 mcg I.V. was administered by Kevin Milton RN; for sedation; 10:04:30 MBrace Wrist Support ([id number]) opened to sterile field. 10:04:32 SHEATH 6Fr Prelude Radial ([id number]) opened to sterile field. 10:08:49 Procedure started. 10:08:57 Local anesthetic to right radial artery with Lidocaine 2% by Jorge Castellanos MD.INITIAL ACCESS ONLY 10:09:07 A 6 Fr Short sheath was inserted into the Right Radial artery 10:09:41 5 Fr ultimate performa guide catheter was inserted over the wire 10:09:49 Versed 1 mg I.V. was administered by Kevin Milton RN; for sedation; 10:09:55 Fentanyl 100 mcg I.V. was administered by Kevin Milton RN; for sedation; 10:10:45 Radial Cocktail (Verapomil 2mg/Nitro 400mcg/Heparin 1500units) 1 syringe I.A. was administered by Jorge Castellanos MD; for vasodilation; 10:11:44 GLIDE WIRE ANGLE 260cm (KC4237) opened to sterile field. 10:12:52 LV hemodynamics recorded. 10:12:53 LV gram done using MARRUFO 10:12:55 Injector settings: Ml/sec: 5, Volume: 15, 10:13:04 EF : 60 % 10:13:10 LCA angiography performed. 10:13:13 Injector settings: Ml/sec: 3, Volume: 6, 10:14:10 RCA angiography performed. 10:14:15 Injector settings: Ml/sec: 3, Volume: 6, 10:14:21 TR BAND Standard ([id number]) opened to sterile field. 10:14:35 Catheter removed. 10:14:42 Sheath removed intact; hemostasis achieved with Mechanical Compression to the Right Radial artery. 10:15:01 Procedure ended.(Physican Out) 10:15:32 Fluoroscopy time 01.90 minutes. 10:15:36 Fluoroscopy dose: 47 mGy 10:15:36 Flurop Dose total: 47 10:15:55 Contrast amount:Isovue 300 50ml. 10:15:57 Sharps counted by scrub and verified by R.N. 10:16:00 TR band inflated with 14cc of air. 10:16:14 Insertion/operative site no bleeding no hematoma. 10:16:22 Post right radial artery:stable 10:16:23 Post Procedure Pulses reassessed and unchanged 10:16:26 Post procedure rhythm: unchanged. 10:16:28 Estimated blood loss: 5 ml 10:16:30 Post procedure instruction explained to patient.Patient verbalizes understanding. 10:16:30 Patient needs reinforcement of post procedure teaching. 10:16:40 Procedure type changed to Cath procedure, Diagnostic procedure, LHC, LHC w/Coronaries, Sedation Charges, Moderate Sedation up to 15 minutes 10:16:41 Procedure and supply charges have been captured, reviewed, submitted and are correct. 10:16:45 Procedure Complication : No complications 10:16:47 Vital chart was stopped 10:16:48 See physician's report for complete and final results. 10:17:04 Report given to Pre/Post Procedure Room. 10:17:11 Patient transfered to Pre/Post Procedure Room with Stretcher. 10:17:21 Procedure ended. 10:17:21 Full Disclosure recording stopped 10:17:25 End room use (Document Last) Device Usage Item Name Manufacture Quantity Catalog Number Hospital Part Current M inimal Lot# / Charge Number Stock Stock Serial# Code ACIST Syringe Acist 1 [id number] [id number] 739657 [id number] 2 0 (19349) [employer] Medline Cath Medline 1 [id number] 50231 512855 5 Pack ([id number]) Bag Decanter Microtek 1 2002S 675627 21080 756854 5 (2001S) Medical Inc. DIAGNOSTIC WIRE St Tim 1 184179 516283 804607 215312 3 0 .035 260cm J wire (993028) ACIST Hand Acist 1 49927 713674 455818 895675 5 Control (38898) [employer] ACIST Manifold Acist 1 19314 181790 854611 370827 5 (18515) [employer] Inc Tegaderm 4 x 4 3M 1 1626W 712062 121959 653416 5 (1626W) MBrace Wrist Advanced 1 140-0250-00 636049 96052 508631 5 Support Vascular ([id number]) Dynamics SHEATH 6Fr Merit 1 [id number] 809199 353003 367784 5 Prelude Radial Medical ([id number]) GLIDE WIRE Terumo 1 [id number] 574077 506075 667180 5 ANGLE 260cm (BF3307) TR BAND Terumo 1 [id number] 040371 520736 484539 4 0 Standard ([id number]) Signature Audit [place] Stage Time Signature Unsigned Intra-Procedure 02/03/2018 Marichuy Torres 10:18:26 AM RT(R) Signatures Monitor : Marichuy Torres RT Signature : Date : Time : [facility] [address] [place] [address]
[~2018-02-03 08:11] MED LIST changes: +VITAMIN D250000 UNIT PO; +ZYRTEC10 MG PO
[2018-02-03] MEDS ORDERED: ALLER-CHLOR4 MG PO (08:37)
[2018-02-03 08:54] VITALS: BP 176/75; Ht 157.5 cm; Wt 70.0 kg
[2018-02-03 09:22] LABS: BASOPHILS 0.2 % (0-2); EOSINOPHILS 1.9 % (0-7); HEMATOCRIT 34.4 % (36.0-48.0); IMMATURE GRANULOCYTES 0.5 % (0-5); LYMPHOCYTES 28.3 % (15-50); MCH 28.8 pg (26.0-34.0); MCV 90.1 fL (80.0-100.0); MEAN PLATELET VOLUME 11.7 fL (7.4-10.4); MONOCYTES 8.1 % (2-11); RBC 3.82 10x6/uL (4.00-5.40); RDW 13.9 % (11.5-14.5); WBC 4.3 10x3/uL (4.8-10.8)
[2018-02-03 09:23] LABS: PLATELET COUNT 90 10x3/uL (130-400)
[2018-02-03 09:28] LABS: ANION GAP 14.8 mmol/L (8-16); CALCIUM 10.1 mg/dL (8.5-10.1); CARBON DIOXIDE 20.2 mmol/L (21.0-32.0); CREATININE - SERUM 1.2 mg/dL (0.6-1.3)
== END 2018-02-03 12:40 | disposition home or self-care (01) ==
LOC: D.CATH 08:11
PROVIDERS: Internal Medicine Interventional Cardiology
DX: R07.89 Other chest pain (principal); Z01.812 Encounter for preprocedural laboratory examination

== ENCOUNTER 2018-04-02 08:08 | Outpatient (CLI) | payer MEDICARE ==
[~2018-04-02] VITALS: Ht 157.5 cm; Wt 69.4 kg
[~2018-04-02 08:08] MED LIST changes: +ALLER-CHLOR4 MG PO
[2018-04-02 08:44] LABS: BASOPHILS 0.2 % (0-2); EOSINOPHILS 1.5 % (0-7); HEMATOCRIT 33.2 % (36.0-48.0); HEMOGLOBIN 11.1 g/dL (12-16); IMMATURE GRANULOCYTES 0.2 % (0-5); LYMPHOCYTES 23.2 % (15-50); MCH 28.8 pg (26.0-34.0); MCHC 33.4 g/dL (31.0-37.0); MEAN PLATELET VOLUME 12.2 fL (7.4-10.4); MONOCYTES 6.1 % (2-11); NEUTROPHILS 68.8 % (40-80); RBC 3.86 10x6/uL (4.00-5.40); RDW 13.7 % (11.5-14.5); WBC 6.5 10x3/uL (4.8-10.8)
[2018-04-02 08:52] LABS: APTT 50.6 SECONDS (22.8-39.4); INR 1.09 (0.85-1.17); PLATELET COUNT 117 10x3/uL (130-400); PROTIME 13.6 SECONDS (11.6-15.0)
[2018-04-02 08:56] LABS: CALCIUM 11.7 mg/dL (8.5-10.1); CARBON DIOXIDE 25.9 mmol/L (21.0-32.0); CREATININE - SERUM 1.6 mg/dL (0.6-1.3); POTASSIUM - SERUM 3.9 mmol/L (3.5-5.1)
[2018-04-02 09:08] VITALS: Ht 157.5 cm; Wt 69.4 kg
--- NOTE | 2018-04-02 12:30 | NUR ---
PT EATING REGULAR TRAY. FAMILY AT BEDSIDE. DRESSDING CDI TO TO LOWER MID BACK.
--- NOTE | 2018-04-02 13:00 | NUR ---
TOLERATING DIET. NO C/O VOICED. FAMILY AT BEDSIDE. DRESSING CDI.
--- NOTE | 2018-04-02 14:00 | NUR ---
IV DC'D WITH CATHETER INTACT.
--- NOTE | 2018-04-02 14:35 | NUR ---
WRITTEN AND VERBAL DC INST. GIVEN TO PT. VERBALIZED UNDERSTANDING.
--- NOTE | 2018-04-02 14:50 | NUR ---
DC'D HOME WITH FAMILY VIA PRIVATE VEHICLE. TAKEN TO VEHICLE VIA WC. STABLE AT TIME OF DC.
== END 2018-04-02 14:50 | disposition home or self-care (01) ==
LOC: D.SP 08:08 → D.CT 10:00 → D.SP 14:50
PROVIDERS: Specialist
DX: D64.9 Anemia, unspecified (principal); Z01.812 Encounter for preprocedural laboratory examination

== ENCOUNTER → 2018-12-03 09:58 | Outpatient (CLI) | payer MEDICARE ==
[2018-04-02 09:08] VITALS: BMI 28.0
== END | disposition home or self-care (01) ==
LOC: D.NM 09:58
PROVIDERS: ATTEND Surgery
DX: E21.0 Primary hyperparathyroidism (principal)